=== PATIENT | male | born 1985 | race Caucasian/White ===

== ENCOUNTER 2019-10-14 00:41 | Emergency (ER) | payer SELFPAY ==
--- NOTE | ~2019-10-14 | US_ITS ---
EXAMINATION: US scrotum doppler DATE: 10/14/2019 02:59 INDICATION: Left testicular swelling and increasing pain TECHNIQUE: Testicular sonogram utilizing grayscale and Doppler COMPARISON: None. FINDINGS: The right testis measures 4.3 x 2.4 x 2.9 cm. The left testis measures 4.1 x 2.3 x 2.9 cm. Symmetric normal grayscale appearance to both testes. There is hyperemia with asymmetrically increased vascular flow to the left testis and relatively enlarged left epididymis consistent with epididymal orchitis. 5 mm right epididymal head cyst. The right epididymis is otherwise normal with normal vascular flow. Small anechoic left hydrocele with minimal right paratesticular fluid which is within normal limits. There is no varicocele. IMPRESSION: 1. Hyperemia to the left testis and epididymis consistent with epididymoorchitis. 2. Likely reactive small left hydrocele. Reviewed, dictated and finalized at location A. IMPRESSION: 1. Hyperemia to the left testis and epididymis consistent with epididymoorchit is. 2. Likely reactive small left hydrocele.
[2019-10-14 00:44] VITALS: BP 134/71; PULSE 89; RESP 20; TEMP 36.6; O2SAT 100
[2019-10-14 01:34] LABS: Add Urine Microscopic? YES; Appearance Urine Clear (Clear); Bilirubin Urine Negative (Negative); Blood Urine 3+ (Negative); Color Urine Yellow (Yellow); Glucose Urine UA Negative (Negative); Ketones Urine Negative (Negative); Leukocyte Esterase Ur 3+ LEU/UL (Negative); Mucus Urine Rare /lpf; Nitrate Urine Negative (Negative); Protein Urine Negative (Negative); Specific Grav Ur 1.012 (1.001-1.035); Urobilinogen Urine Negative mg/dL (<2.0); WBC Urine >75 /hpf
--- NOTE | 2019-10-14 02:19 | ED.MALEGU ---
HPI - Male Genitourinary General Chief complaint: Urogenital-Male Stated complaint: Left testical swelling Time Seen by Provider: 10/14/19 02:03 Source: patient Mode of arrival: ambulatory Limitations: no limitations History of Present Illness HPI Narrative: This patient is a 33 year old male who presents for evaluation of left testicular swelling. He started having left testicular swellling 3 days ago . He states the swelling has continue to worsen and his testicle is now curved shape. He had nausea and vomiting 3 days but he has none tonight. He reports he noticed blood in his urine 2 days ago, but he denies dysuria or discharge. HE denies fever or chills. Related Data Allergies Allergy/AdvReac Type Severity Reaction Status Date / Time No Known Allergies Allergy Verified 10/14/19 00:48 Review of Systems Review of Systems: All systems reviewed & are unremarkable except as noted in HPI and below Constitutional: Constitutional: Denies body ache(s) and Denies chills Respiratory: Respiratory: Denies dyspnea Gastrointestinal: Gastrointestinal: Denies abdominal pain Genitourinary: Genitourinary: Reports hematuria, Denies dysuria, Denies penile discharge, Reports scrotal swelling and Reports testicular pain PMFSH Past Medical History Medical History (Updated 10/14/19 @ 03:50 by Mandi Shelby MD) Patient denies medical problems Surgical History Surgical History (Updated 10/14/19 @ 03:45 by Mandi Shelby MD) History of open reduction and internal fixation (ORIF) procedure Social History Social History (Updated 10/14/19 @ 03:45 by Mandi Shelby MD) Smoking status: Never smoker Exam Narrative: Exam Narrative: GENERAL: Well-appearing, well-nourished, and in no acute distress. HEAD: Normocephalic, atraumatic EYES: PERRLA and EOMI, conjunctiva clear without discharge THROAT:Mucous membranes moist, NECK: Supple, without lymphadenopathy or mass RESPIRATORY: No respiratory distress, Airway patent, Respirations non-labored, Clear to auscultation without rales, rhonchi or wheeze HEART: Regular rate and rhythm. No murmur heard. Normal peripheral pulses. ABDOMEN: Soft, nontender, nondistended, normal active bowel sounds. No masses. No rebound or guarding, No organomegaly. EXTREMITIES: No edema, normal strength with full range of motion. SKIN: Warm, dry, normal color without rash NEURO: Alert and oriented x3. CN 2-12 grossly intact. No focal deficits. PSYCH: Normal mood and affect. : Penis: Yes circumcised Meatus: meatus normal Scrotum: scrotal swelling on the left Testes: Enlarged testicle(s) present on the left, epididymal tenderness on the left and testicular tenderness on the left Course Reevaluation(s) Reevaluation #1: I Discussed with patient that he has epididymyoorchitis. I discussed treatment plan. Date: 10/14/19 Time: 03:47 Vital Signs Vital signs: Vital Signs Temperature 97.9 F 10/14/19 00:44 Pulse Rate 89 10/14/19 00:44 Respiratory Rate 20 10/14/19 00:44 Blood Pressure 134/71 10/14/19 00:44 Pulse Oximetry 100 10/14/19 00:44 Temperature 97.9 F 10/14/19 00:44 Pulse Rate 82 10/14/19 04:20 Respiratory Rate 17 10/14/19 04:20 Blood Pressure 142/86 H 10/14/19 04:20 Pulse Oximetry 98 10/14/19 04:20 MDM - Male Genitourinary Lab Data Attestation: I reviewed the patient's lab results. Labs: Lab Results 10/14/19 10/14/19 Range/Units 01:14 03:45 Urine Color Yellow (Yellow) Urine Appearance Clear (Clear) Urine pH 6.0 (5.0-9.0) Ur Specific [place] 1.012 (1.001-1.035) Urine Protein Negative (Negative) mg/dL Urine Glucose (UA) Negative (Negative) mg/dL Urine Ketones Negative (Negative) mg/dL Ur Blood (Man) 3+ H (Negative) Urine Nitrate Negative (Negative) Urine Bilirubin Negative (Negative) Urine Urobilinogen Negative (<2.0) mg/dL Leukocyte Esterase Rfl 3+ H (Negative) KELLY/UL
[2019-10-14] MEDS: cefTRIAXone 250 MG VIAL IM (02:38)
[2019-10-14] MEDS: LIDOCAINE HCL 1% LOCAL INJ 20 ML VIAL (02:38)
[2019-10-14] MEDS: DOXYCYCLINE HYCLATE 100 MG TABLET PO (02:38)
[2019-10-14 04:20] VITALS: BP 142/86; PULSE 82; RESP 17; O2SAT 98
== END 2019-10-14 04:25 | disposition home or self-care (01) ==
PROVIDERS: Emergency Provider General Practice
DX: N45.1 Epididymitis (principal)
CPT/HCPCS: 76870; 81001; 87077; 87086; 87088; 87186; 87491; 87591; 93976; 96372; 99284; A9270; J0696